=== PATIENT | female | born 1930 | race Caucasian/White ===

== ENCOUNTER 2017-08-01 08:31 | Inpatient (IN) | payer MEDICARE, MEDICAID ==
[2017-08-01 08:57] LABS: #Eosinphils 0.1 thou/uL (0.0-0.7); #Lymphocytes 1.2 thou/uL (1.20-3.40); #Monocytes 0.8 thou/uL (0.11-0.59); #Neutrophils 9.1 thou/uL (1.40-6.50); %Basophils 0.2 % (0.0-1.0); %Eosinophils 1.2 % (0.0-10.0); %Lymphocytes 10.2 % (21.0-51.0); %Monocytes 7.3 % (0.0-10.0); Hemoglobin 13.6 g/dL (12.0-16.0); Mean Corpuscular HGB CONC 32.8 g/dL (32.0-36.0); Mean Corpuscular Hemoglobin 31.1 pg (27.0-31.0); Mean Corpuscular Volume 94.7 fl (81.0-99.0); Mean Platelet Volume 7.6 fL (7.4-10.4); Platelet Count 235 thou/uL (130-400); Red Blood Cell (RBC) Count 4.39 mill/uL (4.20-5.40); White Blood Cell (WBC) Count 11.3 thou/uL (4.8-10.8)
[2017-08-01 09:03] LABS: INR-International Normal Ratio 1.1; Prothrombin Time 14.8 SEC (12.0-14.7)
[2017-08-01 09:07] LABS: PTT 137.2 SEC (22.9-36.1)
[2017-08-01] MEDS ORDERED: Iopamidol 370 76% 50 ML VIAL FS ONE (09:10)
[2017-08-01] MEDS ORDERED: Iopamidol 370 76% 100 ML VIAL ONE (09:10)
[2017-08-01] MEDS ORDERED: Morphine 4 MG/ML VIAL ONE (09:12)
--- NOTE | 2017-08-01 09:12 | RAD ---
CHEST 1 VIEW: Date: 08/01/17 COMPARISON: None. FINDINGS: Bilateral well-defined pulmonary nodules, likely granulomas. There is cement in the lower thoracic sp ine vertebra. Moderate size length pleural effusions. There is pulmonary venous congestion and mild interstitial pr ominence. No acute osseous abnormality. IMPRESSION: Findings suggesting congestive heart failure with cardiomegaly, moderate layering effusions, and mild to moderate pulmonary edema. POS: [facility]
[2017-08-01 09:17] LABS: ALT (SGPT) 14 U/L (8-55); AST (SGOT) 19 U/L (5-34); Alkaline Phosphatase 66 U/L (40-150); Anion Gap 12 mmol/L (10-20); BUN (Urea Nitrogen) 18 mg/dL (9.8-20.1); Bilirubin, Total 0.5 mg/dL (0.2-1.2); CK (CPK) 90 U/L (29-168); Calc. Creatinine Clearance 0 mL/min (70-130); Calcium 9.4 mg/dL (7.8-10.44); Carbon Dioxide 26 mmol/L (23-31); Chloride 103 mmol/L (98-107); Estimated GFR-MDRD 83; Globulin 2.9 g/dL (2.4-3.5); Glucose 125 mg/dL (83-110); Potassium 4.4 mmol/L (3.5-5.1); Protein, Total 6.9 g/dL (6.0-8.3); Sodium 137 mmol/L (136-145)
[2017-08-01 09:22] LABS: Troponin I 0.912 ng/mL (< 0.028)
[2017-08-01] MEDS ORDERED: Lidocaine 1% (PF) 30 ML VIAL ONE (09:35)
[2017-08-01] MEDS ORDERED: Midazolam HCl 2 mg/2 ml Vial ONE (10:01)
[2017-08-01] MEDS ORDERED: Fentanyl 100 MCG/2 ML VIAL ONE (10:02)
[2017-08-01] MEDS ORDERED: Nitroglycerin 100MG/250ML BOT 250 ML ONE (10:07)
[2017-08-01] MEDS ORDERED: Verapamil 5 MG/2 ML VIAL ONE (10:09)
--- NOTE | 2017-08-01 10:12 | HP ---
CHIEF COMPLAINT: Chest pain, shortness of breath. HISTORY OF PRESENT ILLNESS: Ms. De Dios is a very pleasant 87-year-old woman who has not been seen by Cardiology in the past. Her initial symptom was shortness of breath. This began on Tuesday. She st ates that this morning she had acute onset of worsening shortness of breath and chest tightness. No nausea or vomiting. She states her chest pressure was worse with exertion. No other ameliorating or exacerbating factors present. PAST MEDICAL HISTORY: Hyperlipidemia, hypertension. ALLERGIES: PENICILLIN. SOCIAL HISTORY: She is currently . She does have children. REVIEW OF SYSTEMS: Ten-point review of systems reviewed and were otherwise negative. PHYSICAL EXAMINATION: VITAL SIGNS: Blood pressure in the ER 130/90, pulse 80, respirations 20. GENERAL: Patient is a pleasant female who is in no acute distress. The patient appears her stated ag e. NEUROLOGIC: The patient is alert and oriented times 3 with no focal neurologic deficits. HEENT: Sclerae without icterus. Mouth has moist mucous membranes with normal pallor. NECK: No JVD. Carotid upstroke brisk. No bruits bilaterally. LUNGS: Clear to auscultation with unlabored respirations. BACK: No scoliosis or kyphosis. CARDIAC: Regular rate and rhythm with normal S1 and S2. No S3 or S4 noted. No significant rubs, mur murs, thrills, or gallops noted throughout the precordium. PMI is not displaced. There is no parast ernal heave. ABDOMEN: Soft, nontender, nondistended. No peritoneal signs present. No hepatosplenomegaly. No abn ormal striae. EXTREMITIES: 2+ femoral and 2+ dorsalis pedis pulses. No cyanosis, clubbing, or edema. SKIN: No gross abnormalities. PERTINENT LABS: Hemoglobin 13.6, creatinine 0.67, peak troponin 0.9. EKG normal sinus rhythm, ST w ave changes suggesting LVH noted in the precordial leads, cannot exclude acute ST-T wave changes note d in V4 through 5, although no reciprocal changes present. IMPRESSION: 1. Chest pressure. 2. Shortness of breath. 3. Abnormal EKG. 4. Elevated troponin. RECOMMENDATIONS: Symptoms certainly suggest unstable angina. This may also suggest acute new onset heart failure. At this point, given continued symptoms and elevated troponin and abnormal EKG, recom mend urgent coronary plus PCI. I discussed the procedure in full detail with Ms. De Dios. The risks of the procedure include but are not limited to the following: , stroke, SD, need for emergency surgery, loss of limb, bleeding, and infection, as well as a re action to the dye causing kidney failure and needing long-term dialysis. I also discussed the risks of PCI to include all of the above including coronary dissection and perforation in addition to acute stent thrombosis and restenosis. All questions about the procedure were answered. Given the above, the patient agreed to proceed with coronary angiography and possible PCI. I also discussed drug-coated and nondrug stent placement. There are no contraindications if needed. I also discussed her situation with Jefe, her son. Consent was also discussed with Jefe. Felix polo recommendation will be pending the above.
[2017-08-01] MEDS ORDERED: Adenosine 6 MG/2 ML VIAL ONE (10:21)
[2017-08-01] MEDS ORDERED: Heparin 10,000 UNITS/1 ML VIAL ONE (10:37)
[2017-08-01] MEDS ORDERED: Acetaminophen/Codeine 30-300mg Tablet PO PRN (10:44)
[2017-08-01] MEDS ORDERED: cloNIDine 0.1 MG TAB PO PRN (10:44)
[2017-08-01] MEDS ORDERED: Mag-Al 1200 mg/1200 mg/30 ML UDCUP PO PRN (10:44)
[2017-08-01] MEDS ORDERED: Milk Of Magnesia 30 ML UDCUP PO PRN (10:44)
[2017-08-01] MEDS ORDERED: Zolpidem Tartrate 5 MG TAB PO PRN (10:44)
[2017-08-01] MEDS ORDERED: traMADol HCl 50 MG TAB PO PRN (10:44)
[2017-08-01] MEDS ORDERED: Sodium Chloride 0.9% 1,000 ML IV SCH (10:45)
[2017-08-01 11:19] VITALS: BMI 25.0
--- NOTE | 2017-08-01 19:14 | CON ---
DATE OF CONSULTATION: 08/01/2017 SERVICE: Pulmonary Medicine. REASON FOR CONSULTATION: ICU patient. HISTORY OF PRESENT ILLNESS: The patient is an 87-year-old white female. For the last 3 to 4 days, she had chest pain whenever she would exert herself. She would sit down or lie down, the pain would go away, but whenever she got active again, she would have recurrence in chest discomfort. She was limping along in this manner for the last 3 days but this morning, she had a horrendous chest discomfort that did not go away with rest. As such, she presented to the Emergency Department. EKG was abnormal. Her troponin was elevated, so she underwent an urgent cardiac catheterization. By report, it is my understanding that she had complete occlusion of one of her vessels. She would end up getting this stented. As soon as this was opened up, she had resolution in her chest pain. Right now, she is chest pain free and denies any current shortness of breath, nausea, vomiting, fevers or chills. She had no infectious symptoms that predated her presentation. PAST MEDICAL HISTORY: 1. Hypertension. 2. Dyslipidemia. 3. History of myocardial infarction. 4. Coronary artery disease. PAST SURGICAL HISTORY: None. SOCIAL HISTORY: Negative for alcohol, tobacco or illicit drug use. She has no exposure to chemicals, dust asbestos or tuberculosis. FAMILY HISTORY: Noncontributory. ALLERGIES: PENICILLIN. REVIEW OF SYSTEMS: General, head, ears, eyes, nose, throat, cardiovascular, respiratory, GI, , musculoskeletal, neurologic and skin is negative except as mentioned in the HPI. PHYSICAL EXAMINATION: VITAL SIGNS: Afebrile, pulse 86, blood pressure 144/81, respirations 17, saturation 92% on 2 liters nasal cannula. GENERAL: The patient is awake and alert, no apparent distress. LUNGS: Decent air entry. Minimal crackles are present throughout bilateral lung felix. No prolonged expiratory phase or wheezing is appreciated. HEART: Normal rate, regular. ABDOMEN: Soft, nontender, nondistended. Bowel sounds are positive. MUSCULOSKELETAL: No cyanosis or clubbing. No pitting in the bilateral lower extremities. NEUROLOGIC: Grossly nonfocal. LABORATORY DATA: WBC 11.3, hemoglobin 13.6, platelets 235,000. INR is 1.1. Basic metabolic profile and liver function studies are otherwise unremarkable. Troponin is 0.91. IMAGING: Chest x-ray is consistent with volume overload with interstitial fullness, cephalization, and other pulmonary vascular congestion with probable bilateral pleural effusions. ASSESSMENT: 1. Acute hypoxic respiratory failure. 2. Non-ST elevation myocardial infarction. PLAN: The patient will remain in the ICU over the next 24 hours for close observation. IV fluids will be interrupted as soon as she is tolerating p.o. but right now, she is in a window where she is required to lay flat as her sheath was just removed. 70 minutes have been devoted to this patient in various activities. I personally reviewed all imaging studies and laboratory data noted within this document. For fifty percent of this time, I was interacting with the patient at the bedside or coordinating care with the care team. For the remainder of the time I was immediately available to the patient in the hospital unit. VIVIENNE
[2017-08-01] MEDS: Simethicone Chewable 80 MG TAB PO PRN (20:54)
[2017-08-01] MEDS: Carvedilol 3.125 MG TAB PO SCH (20:55)
[2017-08-01] MEDS: Atorvastatin Calcium 40 MG TAB PO SCH (20:55)
--- NOTE | 2017-08-01 21:36 | EKG ---
Test Reason : POST STENT Blood Pressure : / mmHG Vent. Rate : 079 BPM Atrial Rate : 079 BPM P-R Int : 162 ms QRS Dur : 090 ms QT Int : 374 ms P-R-T Axes : 039 -38 058 degrees QTc Int : 428 ms Normal sinus rhythm Left axis deviation Nonspecific T wave abnormality Abnormal ECG No previous ECGs available Confirmed by Eva CAMP ([id number]) on 08/01/2017 9:35:43 PM Referred By: JULIANA Confirmed By:Eva CAMP
[2017-08-02 05:11] LABS: #Lymphocytes 0.7 thou/uL (1.20-3.40); #Monocytes 0.6 thou/uL (0.11-0.59); #Neutrophils 8.4 thou/uL (1.40-6.50); %Basophils 0.1 % (0.0-1.0); %Eosinophils 0.3 % (0.0-10.0); %Lymphocytes 7.5 % (21.0-51.0); %Monocytes 5.8 % (0.0-10.0); %Neutrophils 86.4 % (42.0-75.0); Hemoglobin 13.2 g/dL (12.0-16.0); Mean Corpuscular HGB CONC 32.5 g/dL (32.0-36.0); Mean Corpuscular Hemoglobin 30.6 pg (27.0-31.0); Mean Corpuscular Volume 94.2 fl (81.0-99.0); Mean Platelet Volume 7.8 fL (7.4-10.4); Platelet Count 246 thou/uL (130-400); RBC Distribution Width 13.1 % (11.5-14.5); White Blood Cell (WBC) Count 9.7 thou/uL (4.8-10.8)
[2017-08-02 05:20] LABS: ALT (SGPT) 13 U/L (8-55); AST (SGOT) 17 U/L (5-34); Albumin 3.7 g/dL (3.4-4.8); Alkaline Phosphatase 63 U/L (40-150); Anion Gap 14 mmol/L (10-20); BUN (Urea Nitrogen) 15 mg/dL (9.8-20.1); Bilirubin, Total 0.6 mg/dL (0.2-1.2); Calc. Creatinine Clearance 61 mL/min (70-130); Calcium 8.9 mg/dL (7.8-10.44); Carbon Dioxide 25 mmol/L (23-31); Chloride 103 mmol/L (98-107); Estimated GFR-MDRD 86; Globulin 2.9 g/dL (2.4-3.5); Glucose 175 mg/dL (83-110); Potassium 3.7 mmol/L (3.5-5.1); Protein, Total 6.6 g/dL (6.0-8.3); Sodium 138 mmol/L (136-145)
[2017-08-02] MEDS ORDERED: Heparin 10,000 UNITS/1 ML VIAL ONE (05:50)
[2017-08-02 08:35] LABS: CKMB 5.6 ng/mL (0-6.6)
--- NOTE | 2017-08-02 08:35 | PRG ---
DATE OF SERVICE: 08/02/2017 SUBJECTIVE: Ms. De Dios is complaining of left-sided abdominal discomfort. She has not had a bowel m ovement. She has had diverticulitis in the remote past. No current episode of chest pain or pressur e. PHYSICAL EXAMINATION: VITAL SIGNS: Blood pressure 150/76, pulse 91, respirations 20. LUNGS: Clear to auscultation. CARDIAC: Regular rate and rhythm. ABDOMEN: Soft, mild tenderness to deep palpation. EXTREMITIES: No edema. PERTINENT LABS: Hemoglobin 13.2. Initial troponin 0.9. IMPRESSION: 1. Non-Q myocardial infarction. 2. Coronary artery disease. 3. Status post stent placement. 4. Abdominal pain. RECOMMENDATIONS: We will try and allow Ms. De Dios to have a bowel movement. If she continues to hav e symptoms, may consult with GI. We will give her milk of magnesia. From my standpoint, she appears stable to transfer to the floor.
[2017-08-02 08:39] LABS: Troponin I 0.996 ng/mL (< 0.028)
--- NOTE | 2017-08-02 09:05 | PRG ---
DATE OF SERVICE: 08/02/2017 SERVICE: Pulmonary Medicine. INTERVAL HISTORY: The patient is doing absolutely fantastic this morning. She had complaints of abd ominal discomfort yesterday. She ended up getting some simethicone and this seemed to improve some o f her belly issues. She denies any chest discomfort or shortness of breath. She is yet to get out o f bed and we will work on mobilizing her today. She indicates that she falls frequently without sign ificant assistance and so we will make certain that we provide her with that support. PHYSICAL EXAMINATION: VITAL SIGNS: Afebrile, pulse 91, blood pressure 150/76, respirations 16, saturation 95% on room air. GENERAL: The patient is awake, alert, no apparent distress. LUNGS: Decent air entry. There is no prolonged expiratory phase, wheezing, rhonchi, or crackles pre sent. HEART: Normal rate and regular. ABDOMEN: Soft, nontender, and nondistended. Bowel sounds are positive. MUSCULOSKELETAL: No cyanosis or clubbing. No pitting in the bilateral lower extremities. NEUROLOGIC: Grossly nonfocal. LABORATORY DATA: WBC 9.7, hemoglobin 13.2, platelets 246,000. INR 1.1. Troponin is stable at 0.99. Basic metabolic profile and liver function studies are otherwise unremarkable. ASSESSMENT: 1. Acute hypoxic respiratory failure, resolved. 2. Non-ST elevation myocardial infarction. 3. Abdominal pain. 4. Debility. PLAN: I will initiate some anti-constipation medications on the patient. We will repeat a CBC tomor row morning to make certain white blood cell count and continue to trend up. The patient does have a history of diverticulosis. Currently, her belly is fairly soft and there is no significant tenderne ss or rebound. As such, I do think she has an acute flare. We will keep a close eye on her belly; h owever, as time goes on we will work on mobilizing the patient as much as tolerated. Initiate some a nti-constipation medications. Pulmonary or Critical Care will continue to follow while she remains i n this location, but from my perspective, she is likely stable for transition to the telemetry unit.
[2017-08-02] MEDS: Carvedilol 3.125 MG TAB PO SCH ×2 (09:18→20:49)
[2017-08-02] MEDS: Clopidogrel Bisulfate 75 MG TAB PO SCH (09:18)
[2017-08-02] MEDS: Polyethylene Glycol 3350 17 GM Packet PO SCH (09:18)
[2017-08-02] MEDS: Simethicone Chewable 80 MG TAB PO PRN (09:18)
[2017-08-02] MEDS: ALPRAZolam 0.5 MG TAB PO PRN ×2 (12:12→20:50)
[2017-08-02] MEDS ORDERED: Digoxin 0.5 MG/2 ML AMP SLOW IVP SCH (17:45)
[2017-08-02] MEDS: Esmolol 2,500 MG/250 ML 250 ML IVPB SCH (18:17)
[2017-08-02] MEDS: Atorvastatin Calcium 40 MG TAB PO SCH (20:49)
[2017-08-03] MEDS: Esmolol 2,500 MG/250 ML 250 ML IVPB SCH (05:14)
[2017-08-03 05:29] LABS: #Lymphocytes 1.5 thou/uL (1.20-3.40); #Monocytes 1.4 thou/uL (0.11-0.59); %Basophils 0.2 % (0.0-1.0); %Eosinophils 0.2 % (0.0-10.0); %Lymphocytes 12.8 % (21.0-51.0); %Neutrophils 74.8 % (42.0-75.0); Hemoglobin 12.2 g/dL (12.0-16.0); Mean Corpuscular HGB CONC 31.8 g/dL (32.0-36.0); Mean Corpuscular Hemoglobin 30.7 pg (27.0-31.0); Mean Corpuscular Volume 96.6 fl (81.0-99.0); Mean Platelet Volume 8.3 fL (7.4-10.4); Platelet Count 228 thou/uL (130-400); Red Blood Cell (RBC) Count 3.98 mill/uL (4.20-5.40)
[2017-08-03] MEDS: Clopidogrel Bisulfate 75 MG TAB PO SCH (09:11)
[2017-08-03] MEDS: ALPRAZolam 0.5 MG TAB PO PRN ×2 (09:11→21:39)
[2017-08-03] MEDS: Carvedilol 3.125 MG TAB PO SCH ×2 (09:11→21:39)
[2017-08-03] MEDS: Polyethylene Glycol 3350 17 GM Packet PO SCH (09:11)
[2017-08-03] MEDS ORDERED: Furosemide 40 MG/4 ML VIAL IVP SCH (10:00)
--- NOTE | 2017-08-03 17:37 | PRG ---
DATE OF SERVICE: 08/03/2017 SERVICE: Pulmonary Medicine. INTERVAL HISTORY: The patient is doing fine from a respiratory standpoint. She denies any shortness of breath. She got up into a chair today. She needs significant help in order to accomplish this. Otherwise, there has been no interval change to her condition. PHYSICAL EXAMINATION: VITAL SIGNS: Afebrile, pulse 77, blood pressure 135/63, respirations 17, saturation 95% on 1 liter n marlena cannula. GENERAL: The patient is awake and alert, in no apparent distress. LUNGS: Excellent air entry. Dependent crackles are minimal. No prolonged expiratory phase, wheezin g or rhonchi are present. HEART: Normal rate. Irregular. ABDOMEN: Soft, nontender, nondistended. Bowel sounds are positive. MUSCULOSKELETAL: No cyanosis or clubbing. No pitting in the bilateral lower extremities. NEUROLOGIC: Grossly nonfocal. LABORATORY DATA: WBC 12.0, hemoglobin 12.2, platelets 228,000. Neutrophil count is dropping and the lymphocyte count is responding. INR 1.1. IMAGING: Echocardiogram demonstrates a 30% to 35% ejection fraction and hypokinetic motion of the an terior apex and wall of the left ventricle. Normal right ventricular function is present. ASSESSMENT: 1. Acute hypoxic respiratory failure, resolving. 2. Non-ST elevation myocardial infarction. 3. Acute systolic heart failure. PLAN: Pulmonary or Critical Care will continue to follow while the patient remains in this location. I will drop her oxygen to room air. We will see if she tolerates this. If she does, she will have no further requirements for Inpatient Pulmonary or Critical Care opinion.
[2017-08-03] MEDS: Atorvastatin Calcium 40 MG TAB PO SCH (21:39)
[2017-08-04] MEDS: ALPRAZolam 0.5 MG TAB PO PRN ×2 (08:54→21:32)
[2017-08-04] MEDS: Carvedilol 3.125 MG TAB PO SCH ×2 (08:54→21:30)
[2017-08-04] MEDS: Clopidogrel Bisulfate 75 MG TAB PO SCH (08:54)
[2017-08-04] MEDS: Polyethylene Glycol 3350 17 GM Packet PO SCH (08:55)
--- NOTE | 2017-08-04 13:31 | PRG ---
DATE OF SERVICE: 08/04/2017 SERVICE: Pulmonary Medicine. INTERVAL HISTORY: The patient is doing fantastic from a cardiovascular and respiratory standpoint. She is breathing comfortably. She remains on room air. Otherwise, there were no interval events. S he is quite weak and is going to be considered for rehabilitation facility. PHYSICAL EXAMINATION: VITAL SIGNS: Afebrile, pulse 79, blood pressure 119/58, respirations 17, saturation 92% on room air. GENERAL: The patient is awake, alert, no apparent distress. LUNGS: Excellent air entry with no prolonged expiratory phase, wheezing, rhonchi or crackles. HEART: Normal rate, regular. ABDOMEN: Soft, nontender, nondistended. Bowel sounds are positive. MUSCULOSKELETAL: No cyanosis or clubbing. No pitting in the bilateral lower extremities. NEUROLOGIC: Grossly nonfocal. ASSESSMENT: 1. Acute hypoxic respiratory failure, resolved. 2. Non-ST elevation myocardial infarction. 3. Acute systolic heart failure. PLAN: The patient is doing really well from a respiratory standpoint. She is quite debilitated and is going to work with physical therapy. I do agree that she would benefit from a stay in rehabilitat ion or shelter facility to strengthen up. At this point, she has no ongoing requirements for Pulmonary or Critical Care opinion. As such, I will sign off. Please call with additional question s or concerns moving forward.
--- NOTE | 2017-08-04 15:41 | PRG ---
DATE OF SERVICE: 08/04/2017 SUBJECTIVE: She is doing well, no current complaints. She is seen ambulating. She has been accepte d for rehab but bed is not available until tomorrow. OBJECTIVE: VITAL SIGNS: Blood pressure 137/70, pulse 85, respirations 20. LUNGS: Clear to auscultation. CARDIAC: Regular rate and rhythm. ABDOMEN: Soft, nontender, nondistended. EXTREMITIES: No edema. IMPRESSION: 1. Non-Q myocardial infarction. 2. Deconditioning. RECOMMENDATIONS: The patient has been cleared for rehabilitation when bed available tomorrow. Disch arge orders have been placed. From my standpoint, we would be okay to discharge to rehab tomorrow. LifeVest had also been fitted. She is currently on beta benjamin therapy, ARB, aspirin and Plavix in addition to statin therapy. I did speak with her daughter today, Kiara, and kept abreast of the si tuation.
[2017-08-04] MEDS: Esmolol 2,500 MG/250 ML 250 ML IVPB SCH (18:38)
[2017-08-04] MEDS: Atorvastatin Calcium 40 MG TAB PO SCH (21:30)
[2017-08-05] MEDS: Esmolol 2,500 MG/250 ML 250 ML IVPB SCH (05:18)
[2017-08-05] MEDS: Losartan 25 MG TAB PO SCH (09:41)
[2017-08-05] MEDS: Carvedilol 3.125 MG TAB PO SCH (09:41)
[2017-08-05] MEDS: Polyethylene Glycol 3350 17 GM Packet PO SCH (09:41)
[2017-08-05] MEDS: Clopidogrel Bisulfate 75 MG TAB PO SCH (09:41)
--- NOTE | 2017-08-05 10:42 | PDOC.CTH ---
Cardiology Progress Note - Subjective Patient without complaint. Went into AF with RVR yesterday early evening. Symptomatic with palpitations. Placed on esmolol drip and converted back to NSR. Feels fine now. - Objective Vital Signs Temp Pulse Resp BP BP Pulse Ox 08/05/17 08:00 98.1 F 78 18 94 L 08/05/17 07:15 98.1 F 78 18 135/65 94 L 08/05/17 04:00 97.9 F 82 18 134/76 94 L Weight 160 lb 12.8 oz 08/04/17 08/05/17 08/06/17 06:59 06:59 06:59 Intake Total 1540 Output Total 2450 Balance -910 - Physical Examination General/Neuro: alert & oriented x3, NAD Neck: no JVD present Lungs: CTA, unlabored respirations Heart: RRR, other: (S1S2) Abdomen: NT/ND Extremities: other: (no edema) - Telemetry Telemetry Rhythm: NSR 60s-70s - Labs Result Diagrams: 08/03/17 04:22 08/02/17 04:33 Troponin/CKMB CK-MB (CK-2) 5.6 ng/mL (0-6.6) 08/02/17 08:04 Troponin I 0.996 ng/mL (< 0.028) H* 08/02/17 08:04 - Assessment/Plan 1. s/p NSTEMI - on ARB, Coreg and statin. 2. s/p PTCA - continue Plavix and ASA 3. 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 Euvolemic. LifeVest in place. 4. AFib with RVR - resolved on esmolol. Increase Coreg. May need Amio. [id number]- VASc 5. Discussed with patient and bleeding risk, especially in combination with ASA and Plavix. She chooses NOAC. Will start Eliquis 5mg BID. May benefit from Amio for a month post-discharge. 5. HTN
[2017-08-05] MEDS ORDERED: Carvedilol 3.125 MG TAB PO SCH (10:45)
[2017-08-05] MEDS: Atorvastatin Calcium 40 MG TAB PO SCH (20:45)
[2017-08-05] MEDS: ALPRAZolam 0.5 MG TAB PO PRN (20:45)
[2017-08-05] MEDS: Apixaban 5 MG TAB PO SCH (20:46)
[2017-08-05] MEDS: Carvedilol 6.25 MG TAB PO SCH (20:46)
[2017-08-06 05:35] LABS: Hemoglobin 13.5 g/dL (12.0-16.0)
[2017-08-06 05:36] LABS: Platelet Count 247 thou/uL (130-400)
[2017-08-06 05:58] LABS: Calc. Creatinine Clearance 75 mL/min (70-130); Estimated GFR-MDRD Greater than 90
[2017-08-06] MEDS: Carvedilol 6.25 MG TAB PO SCH ×2 (08:55→20:11)
[2017-08-06] MEDS: ALPRAZolam 0.5 MG TAB PO PRN ×2 (08:56→20:11)
[2017-08-06] MEDS: Clopidogrel Bisulfate 75 MG TAB PO SCH (08:56)
[2017-08-06] MEDS: Apixaban 5 MG TAB PO SCH ×2 (08:56→20:12)
[2017-08-06] MEDS: Losartan 25 MG TAB PO SCH (08:56)
[2017-08-06] MEDS: Polyethylene Glycol 3350 17 GM Packet PO SCH (08:59)
[2017-08-06] MEDS ORDERED: Amiodarone 200 MG TAB PO SCH (10:45)
[2017-08-06 11:21] LABS: #Eosinphils 0.1 thou/uL (0.0-0.7); #Lymphocytes 1.4 thou/uL (1.20-3.40); #Neutrophils 10.4 thou/uL (1.40-6.50); %Basophils 0.1 % (0.0-1.0); %Eosinophils 0.5 % (0.0-10.0); %Lymphocytes 10.8 % (21.0-51.0); %Monocytes 7.8 % (0.0-10.0); %Neutrophils 80.8 % (42.0-75.0); Mean Corpuscular HGB CONC 32.5 g/dL (32.0-36.0); Mean Corpuscular Hemoglobin 30.4 pg (27.0-31.0); Mean Corpuscular Volume 93.6 fl (81.0-99.0); Mean Platelet Volume 7.3 fL (7.4-10.4); Platelet Count 239 thou/uL (130-400); RBC Distribution Width 13.2 % (11.5-14.5); Red Blood Cell (RBC) Count 4.27 mill/uL (4.20-5.40); White Blood Cell (WBC) Count 12.8 thou/uL (4.8-10.8)
[2017-08-06 11:37] LABS: ALT (SGPT) 23 U/L (8-55); AST (SGOT) 20 U/L (5-34); Albumin 3.1 g/dL (3.4-4.8); Alkaline Phosphatase 61 U/L (40-150); Anion Gap 8 mmol/L (10-20); BUN (Urea Nitrogen) 15 mg/dL (9.8-20.1); Bilirubin, Total 0.5 mg/dL (0.2-1.2); Calc. Creatinine Clearance 76 mL/min (70-130); Calcium 8.1 mg/dL (7.8-10.44); Carbon Dioxide 29 mmol/L (23-31); Chloride 101 mmol/L (98-107); Estimated GFR-MDRD Greater than 90; Globulin 2.2 g/dL (2.4-3.5); Glucose 133 mg/dL (83-110); Magnesium 1.7 mg/dL (1.6-2.6); Potassium 3.2 mmol/L (3.5-5.1); Protein, Total 5.3 g/dL (6.0-8.3); Sodium 135 mmol/L (136-145)
[2017-08-06] MEDS: Amiodarone 200 MG TAB PO SCH (20:11)
[2017-08-06] MEDS: Atorvastatin Calcium 40 MG TAB PO SCH (20:11)
--- NOTE | 2017-08-06 20:54 | PDOC.EVN ---
Event Note - Event Note Event Note: Consult note dictated
[2017-08-07 05:25] LABS: #Eosinphils 0.1 thou/uL (0.0-0.7); #Lymphocytes 1.8 thou/uL (1.20-3.40); #Monocytes 0.9 thou/uL (0.11-0.59); #Neutrophils 9.6 thou/uL (1.40-6.50); %Basophils 0.2 % (0.0-1.0); %Eosinophils 0.9 % (0.0-10.0); %Lymphocytes 14.4 % (21.0-51.0); %Monocytes 7.2 % (0.0-10.0); %Neutrophils 77.3 % (42.0-75.0); Hemoglobin 12.8 g/dL (12.0-16.0); Mean Corpuscular HGB CONC 33.1 g/dL (32.0-36.0); Mean Corpuscular Hemoglobin 31.9 pg (27.0-31.0); Mean Corpuscular Volume 96.3 fl (81.0-99.0); Mean Platelet Volume 7.7 fL (7.4-10.4); Platelet Count 250 thou/uL (130-400); RBC Distribution Width 13.3 % (11.5-14.5); Red Blood Cell (RBC) Count 4.01 mill/uL (4.20-5.40); White Blood Cell (WBC) Count 12.4 thou/uL (4.8-10.8)
[2017-08-07 05:31] LABS: ALT (SGPT) 24 U/L (8-55); AST (SGOT) 19 U/L (5-34); Albumin 3.1 g/dL (3.4-4.8); Alkaline Phosphatase 61 U/L (40-150); Anion Gap 10 mmol/L (10-20); BUN (Urea Nitrogen) 11 mg/dL (9.8-20.1); Bilirubin, Total 0.6 mg/dL (0.2-1.2); Calc. Creatinine Clearance 70 mL/min (70-130); Calcium 8.4 mg/dL (7.8-10.44); Carbon Dioxide 29 mmol/L (23-31); Chloride 102 mmol/L (98-107); Estimated GFR-MDRD Greater than 90; Globulin 2.2 g/dL (2.4-3.5); Glucose 138 mg/dL (83-110); Magnesium 1.8 mg/dL (1.6-2.6); Potassium 3.1 mmol/L (3.5-5.1); Protein, Total 5.3 g/dL (6.0-8.3); Sodium 138 mmol/L (136-145)
[2017-08-07] MEDS: Amiodarone 200 MG TAB PO SCH ×2 (08:30→20:24)
[2017-08-07] MEDS: Losartan 25 MG TAB PO SCH (08:30)
[2017-08-07] MEDS: ALPRAZolam 0.5 MG TAB PO PRN ×2 (08:30→20:24)
[2017-08-07] MEDS: Clopidogrel Bisulfate 75 MG TAB PO SCH (08:30)
[2017-08-07] MEDS: Apixaban 5 MG TAB PO SCH ×2 (08:30→20:24)
[2017-08-07] MEDS: Carvedilol 6.25 MG TAB PO SCH ×2 (08:31→20:24)
[2017-08-07] MEDS: Potassium Chloride 20 MEQ TAB PO SCH ×3 (09:09→17:31)
--- NOTE | 2017-08-07 12:21 | PDOC.PN ---
- Subjective Encounter Start Date: 08/07/17 Encounter Start Time: 10:15 pt had 3 BM for the day when i saw her yesterday afternoon, only one more overnight. none today yet. Denies Abd pain, no N/V, no CP, no SOB 10 point ROS performed and neg for all systems except as per HPI - Objective MAR Reviewed: Yes Vital Signs & Weight: Vital Signs (12 hours) Temp Pulse Resp BP BP BP Pulse Ox 08/07/17 08:31 138/62 08/07/17 07:20 97.2 F L 76 18 93 L 08/07/17 07:15 97.2 F L 76 18 138/62 93 L 08/07/17 04:00 97.8 F 77 18 140/64 95 08/07/17 02:31 95 Weight Weight 158 lb Most Recent Monitor Data Heart Rate from ECG 96 NIBP 164/118 NIBP BP-Mean 132 Respiration from ECG 16 SpO2 92 I&O: 08/06/17 08/07/17 08/08/17 06:59 06:59 06:59 Intake Total 300 460 Balance 300 460 Result Diagrams: 08/07/17 04:31 08/07/17 04:31 Radiology Reviewed by me: Yes EKG Reviewed by me: Yes Phys Exam - Physical Examination Constitutional: NAD HEENT: PERRLA, moist MMs, sclera anicteric, oral pharynx no lesions Neck: no nodes, no JVD, supple, full ROM Respiratory: no wheezing, no rales, no rhonchi, clear to auscultation bilateral Cardiovascular: RRR, no significant murmur, no rub Gastrointestinal: soft, non-tender, no distention, positive bowel sounds Musculoskeletal: no edema, pulses present Neurological: non-focal, normal sensation, moves all 4 limbs Lymphatic: no nodes Psychiatric: normal affect, A&O x 3 Skin: no rash, normal turgor, cap refill <2 seconds Dx/Plan (1) Diarrhea Code(s): R19.7 - DIARRHEA, UNSPECIFIED Status: Acute Qualifiers: Diarrhea type: presumed infectious Qualified Code(s): R19.7 - Diarrhea, unspecified Comment: WBC present,m neg for salmonella or campy, neg for blood, CDiff negative. no further rx. got miralax a few days ag o and has refused since, would obviously not continue (2) Unstable angina Status: Resolved Comment: s/p PTCA and PCI by Dr Barry (3) CAD (coronary artery disease), [place] coronary artery Code(s): I25.10 - ATHSCL HEART DISEASE OF [place] CORONARY ARTERY W/O ANG PCTRS Status: Acute Qualifiers: [place] vs. transplanted heart: [place] heart Associated angina: with unstable angina Qualified Code(s): I25.110 - Atherosclerotic heart disease of [place] coronary artery with unstable angina pectoris (4) Paroxysmal A-fib Code(s): I48.0 - PAROXYSMAL ATRIAL FIBRILLATION Status: Chronic (5) HTN (hypertension) Code(s): I10 - ESSENTIAL (PRIMARY) HYPERTENSION Status: Chronic Qualifiers: Hypertension type: essential hypertension Qualified Code(s): I10 - Essential (primary) hypertension - Plan cont current plan of care, PT/OT, out of bed/ambulate * .
[2017-08-07] MEDS: Atorvastatin Calcium 40 MG TAB PO SCH (20:25)
[2017-08-08 05:02] LABS: Hemoglobin 12.3 g/dL (12.0-16.0); Platelet Count 270 thou/uL (130-400)
[2017-08-08 05:29] LABS: Calc. Creatinine Clearance 73 mL/min (70-130); Estimated GFR-MDRD Greater than 90
--- NOTE | 2017-08-08 08:53 | CON ---
DATE OF CONSULTATION: 08/06/2017 TIME OF SERVICE: 1530 hours PRIMARY CARE PHYSICIAN: Santiago Cowart M.D. REQUESTING PHYSICIAN: Mark Ramon M.D. with Cardiology. REASON FOR CONSULTATION: Diarrhea. HISTORY OF PRESENT ILLNESS: Ms. De Dios is an 87-year-old [place] female with a history of h ypertension, hyperlipidemia, coronary artery disease with a past KS and no history of tobacco abuse w barb presents to the emergency department initially on 08/01/2017 for evaluation of chest pain. 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 Per Dr. Barry note, she describes the a cute onset of worsening of shortness of breath and chest tightness without nausea and vomiting and wo rse with exertion. She did consent at the time of admission for a possible PTCA with and without PCI . After admission, Pulmonary was consulted. This was done as she was placed initially in the ICU. She was post-PTCA for unstable angina, possible ST elevation KS and was watched in the ICU overnight. B y 08/02/2017, she was improved. She was complaining of the left-sided abdominal discomfort and did h ave a history of diverticulitis. She was started on MiraLax by Dr. Barry. She received 1 dose t hat day. Echocardiogram was done that showed EF of 30%-35%, there was apex inferior septal wall hypo kinesis, moderate MR, moderate AI, moderate TR and moderately elevated pulmonary pressure. The patient did have belly pain and on 08/05/2017 had multiple bowel movements a day seemed to be get ting worse. She has been refusing her MiraLax during that time and on 08/05/2017, was taken over by Dr. Ramon. Patient had multiple bowel movements, numbering 3 between 7:00 a.m. and noon. We were subsequently consulted for diarrhea. On my evaluation, she had no fevers or chills. She denied any bleeding. She did admit to taking her MiraLax a day or two prior to that, but had not had any since then. She has no other current complaints. Character of the stool was noted to be loosely formed and not watery. Per the nurses, did not smell infectious such as C. diff. PAST MEDICAL HISTORY: 1. Coronary artery disease. 2. Hypertension. 3. Ischemic cardiomyopathy. 4. Chronic systolic CHF. 5. Diverticulosis. 6. Hyperlipidemia. HOME MEDICATIONS: 1. Xanax 0.5 mg p.o. at bedtime and 0.5 mg p.o. q.i.d. scheduled. 2. Coreg 3.125 mg p.o. b.i.d., a new prescription. 3. Celexa 30 mg p.o. at bedtime. 4. Plavix 75 mg daily, a new prescription. 5. Fentanyl 1 patch 12 mcg transdermal, change every 3 days. 6. Levothyroxine 100 mcg daily. 7. Lisinopril 10 mg p.o. q.a.m. 8. Multivitamin b.i.d. 9. Metamucil 425 grams p.o. b.i.d. ALLERGIES: PENICILLINS. FAMILY HISTORY: Negative for premature coronary disease. No history of clotting or bleeding, no imm une dysfunction. SOCIAL HISTORY: She denies any history of alcohol, tobacco or drug use. REVIEW OF SYSTEMS: A 10-point review of systems was performed and is negative for all systems except as per HPI. PHYSICAL EXAMINATION: VITAL SIGNS: Temperature last recorded was 97.9, pulse 80, blood pressure 134/62, respiratory rate 1 8, satting 95% on room air. GENERAL: She is awake. She is alert and oriented x2. She is an elderly age-appropriate appearing 6 9-year-old white female, appears to be in no acute distress. HEENT: Normocephalic, atraumatic. Pupils equal, reactive bilaterally. Mucous membranes are moist. No visible lesions. No thrush. NECK: Supple, without lymphadenopathy, JVD, or thyromegaly. She has normal carotid upstrokes. Ther e are no bruits. LUNGS: Clear to auscultation bilaterally. She has no wheezes, no rales, no rhonchi. She has good a ir movement. Symmetrical chest excursion. There is no prolonged expiratory phase. CARDIOVASCULAR: She has normal cardiac and regular. She has normal S1 and S2. I do hear an S4, but no S3. She has a systolic ejection murmur heard over the precordium. She has a diastolic murmur be st heard at the apex. She also has a holosystolic murmur best heard at the apex. ABDOMEN: Soft, is distended and slightly tympanitic. She has hyperactive bowel sounds present in lo wer quadrants. There is no tenderness to palpation. No rebound, rigidity or guarding. EXTREMITIES: Show no cyanosis or clubbing with no edema. She has 1+ dorsalis pedis and posterior ti bial pulses bilaterally. SKIN: Warm, moist perfused. No rashes or lesions. NEUROLOGIC: Cranial nerves II-XII are grossly intact. She has no focal neurologic deficits. She shanks s normal speech pattern, 5/5 strength. MUSCULOSKELETAL: Normal to inspection. All joints have good range of motion. No palpable effusion, no inflammation. LABORATORY EVALUATION: Today show white count 12.8 from 12.0 yesterday and 9.7 just after admission, hemoglobin 13, hematocrit of 40.0, platelet count is 239,000 with a pretty normal differential 80% g ranulocytes. Chemistry profile this morning of consultation showed a sodium 135, potassium 3.2, chlo ride 101, bicarb 29, BUN 15, creatinine 0.57. Glucose 133. Liver function, bilirubin within normal limits. Albumin is low at 3.1, globulin low at 2.2. Troponin I was 0.912 on initial presentation, it was 0.996 the following morning post-intervention. ASSESSMENT AND PLAN: 1. Diarrhea. She has 3 episodes today, three or four episodes yesterday. Per the chart showed a to karla of 3 between 0700 on 08/05/2017 and 0630 on 08/06/2017. She already had a Clostridium difficile ordered that was negative. We will get fecal leukocytes, fecal blood and stool culture for Jonnyy, Lyn igella and E. coli . We will follow up with the results. At this time, she has not had any bow el movement in the last several hours. We will watch overnight and then make another intervention. 2. Atherosclerotic cardiovascular disease, status post possible myocardial infarction and percutaneo us transluminal coronary angioplasty per Cardiology. 3. Hypertension per Cardiology. 4. Hyperlipidemia, on statin therapy. Thank you very much for this consult. We will follow along with you.
[2017-08-08] MEDS: Amiodarone 200 MG TAB PO SCH ×2 (09:42→20:16)
[2017-08-08] MEDS: Clopidogrel Bisulfate 75 MG TAB PO SCH (09:42)
[2017-08-08] MEDS: Carvedilol 6.25 MG TAB PO SCH ×2 (09:42→20:16)
[2017-08-08] MEDS: Losartan 25 MG TAB PO SCH (09:42)
[2017-08-08] MEDS: Apixaban 5 MG TAB PO SCH ×2 (09:42→20:15)
[2017-08-08] MEDS: ALPRAZolam 0.5 MG TAB PO PRN ×2 (09:44→20:16)
--- NOTE | 2017-08-08 10:06 | PDOC.PN ---
- Subjective Encounter Start Date: 08/08/17 Encounter Start Time: 11:10 Subjective: Patient without further abdominal pain or diarrhea. She does still feel -: alot of epigastric pressure when she tried to eat that makes her SOB. -: A bit better this AM. - Objective MAR Reviewed: Yes Vital Signs & Weight: Vital Signs (12 hours) Temp Pulse Resp BP Pulse Ox 08/08/17 07:30 97.8 F 80 16 142/68 H 93 L 08/08/17 05:09 96 08/08/17 04:00 97.7 F 78 17 119/58 L 95 Weight Weight 156 lb 3.2 oz Most Recent Monitor Data Heart Rate from ECG 96 NIBP 164/118 NIBP BP-Mean 132 Respiration from ECG 16 SpO2 92 I&O: 08/07/17 08/08/17 08/09/17 06:59 06:59 06:59 Intake Total 460 270 Balance 460 270 Result Diagrams: 08/08/17 04:10 08/08/17 04:10 Phys Exam - Physical Examination Constitutional: NAD HEENT: moist MMs Respiratory: no wheezing, no rales, no rhonchi, clear to auscultation bilateral Cardiovascular: RRR, no significant murmur Gastrointestinal: soft, non-tender, no distention, positive bowel sounds Musculoskeletal: no edema Neurological: non-focal, moves all 4 limbs Psychiatric: normal affect, A&O x 3 Dx/Plan (1) Diarrhea Code(s): R19.7 - DIARRHEA, UNSPECIFIED Status: Resolved Qualifiers: Diarrhea type: presumed infectious Qualified Code(s): R19.7 - Diarrhea, unspecified Comment: WBC present, neg for salmonella or campy, neg for blood, CDiff negative. no further rx. got miralax a few days ago and has refused since, would obviously not continue. Suspect viral GE, now still with some dyspepsia, improving. (2) CAD (coronary artery disease), [place] coronary artery Code(s): I25.10 - ATHSCL HEART DISEASE OF [place] CORONARY ARTERY W/O ANG PCTRS Status: Acute Qualifiers: [place] vs. transplanted heart: [place] heart Associated angina: with unstable angina Qualified Code(s): I25.110 - Atherosclerotic heart disease of [place] coronary artery with unstable angina pectoris (3) NSTEMI (non-ST elevated myocardial infarction) Code(s): I21.4 - NON-ST ELEVATION (NSTEMI) MYOCARDIAL INFARCTION Status: Acute Comment: s/p stent (4) Paroxysmal A-fib Code(s): I48.0 - PAROXYSMAL ATRIAL FIBRILLATION Status: Chronic Comment: run last week resolved with Esmolol, cardiology managing and may treat with Amiodarone for one month (5) Hypokalemia Code(s): E87.6 - HYPOKALEMIA Status: Acute Comment: replaced - Plan cont current plan of care will check O2 sat while eating to confirm no hypoxia from aspiration -: If ok, cleared for d/c from our standpoint. * . - Discharge Day Encounter end time: 11:25
[2017-08-08 20:03] VITALS: BP 144/64; TEMP 98.1
[2017-08-08] MEDS ORDERED: Atorvastatin Calcium 20 MG TAB PO SCH (21:00)
--- NOTE | 2017-08-09 03:13 | DIS ---
PRIMARY CARE PHYSICIAN: Dr. Santaigo Cowart. REASON FOR ADMISSION: Non-ST elevation and acute ID. ADMITTING PHYSICIAN: Dr. Barry. DISCHARGE DIAGNOSES: 1. Non-ST elevation acute myocardial infarction, status post stent placement. 2. Coronary artery disease. 3. Paroxysmal atrial fibrillation. 4. Viral gastroenteritis. HOSPITAL COURSE: This is an 87-year-old female who came in and was admitted to the hospital by Dr. Barry for chest pain and diagnosed with a non-ST elevation acute ID. She had a PCI with stent placement. The patient's hospital course was complicated by some abdominal cramping followed by diarrhea and then abdominal bloating with when eating. The [facility] hospitalist was consulted to manage these. Patient was ruled out for any bacterial infectious etiology or C. diff and thought to be due to viral gastritis and is improving. The patient did have a paroxysmal atrial fibrillation, it was resolved with esmolol in the hospital also on amiodarone and blood thinners. On the day of discharge, the patient was determined to be stable by Cardiology to discharge to rehab. DISCHARGE MANAGEMENT: Discharged to rehabilitation. ACTIVITIES: As tolerated. DIET: Healthy heart diet. Physical and occupational therapy. Follow up with Cardiology as indicated. DISCHARGE MEDICATIONS: As per Cardiology's recommendations. MTDD
--- NOTE | 2017-08-13 22:58 | EKG ---
Test Reason : CP Blood Pressure : / mmHG Vent. Rate : 090 BPM Atrial Rate : 090 BPM P-R Int : 152 ms QRS Dur : 084 ms QT Int : 354 ms P-R-T Axes : 037 -32 067 degrees QTc Int : 433 ms Normal sinus rhythm Left axis deviation Possible Anterior infarct , age undetermined Abnormal ECG Confirmed by OMI SHAH, JOLIE ([id number]), medical transcription editor DON OWEN ([id number]) on 08/13/2017 10:57:57 PM Referred By: OMI Confirmed By:JOLIE BRAGA MD
--- NOTE | 2017-08-13 22:58 | EKG ---
Test Reason : Blood Pressure : / mmHG Vent. Rate : 085 BPM Atrial Rate : 085 BPM P-R Int : 158 ms QRS Dur : 074 ms QT Int : 356 ms P-R-T Axes : 067 -23 072 degrees QTc Int : 423 ms Normal sinus rhythm Nonspecific ST and T wave abnormality Abnormal ECG Confirmed by OMI SHAH, JOLIE ([id number]), primer expeditor and drier DON OWEN ([id number]) on 08/13/2017 10:57:57 PM Referred By: Confirmed By:JOLIE BRAGA MD
--- NOTE | 2017-08-17 22:34 | EKG ---
Test Reason : Blood Pressure : / mmHG Vent. Rate : 092 BPM Atrial Rate : 092 BPM P-R Int : 152 ms QRS Dur : 096 ms QT Int : 414 ms P-R-T Axes : 026 -30 -19 degrees QTc Int : 511 ms Normal sinus rhythm Left axis deviation Cannot rule out Anterior infarct , age undetermined T wave abnormality, consider inferior ischemia Prolonged QT Abnormal ECG When compared with ECG of 01-AUG-2017 11:47, T wave inversion now evident in Inferior leads T wave inversion now evident in Anterior leads QT has lengthened Confirmed by Eva CAMP ([id number]) on 08/17/2017 10:34:26 PM Referred By: JULIANA Confirmed By:Eva CAMP
== END 2017-08-08 21:28 | DRG 246 ==
LOC: ERS 08:31 → CCU 10:44 → 2NO 08-02 10:19
PROVIDERS: ADMIT Internal Medicine Cardiovascular Disease; ATTEND Internal Medicine Cardiovascular Disease
PROC: 027034Z Dilation of Coronary Artery, One Artery with Drug-eluting Intraluminal Device, Percutaneous Approach (ICD-10-PCS; principal; 2017-08-01)
PROC: 4A023N7 Measurement of Cardiac Sampling and Pressure, Left Heart, Percutaneous Approach (ICD-10-PCS; 2017-08-01)
PROC: B2111ZZ Fluoroscopy of Multiple Coronary Arteries using Low Osmolar Contrast (ICD-10-PCS; 2017-08-01)
DX: I11.0 Hypertensive heart disease with heart failure; Z88.0 Allergy status to penicillin; I21.4 Non-ST elevation (NSTEMI) myocardial infarction; A08.4 Viral intestinal infection, unspecified; E87.6 Hypokalemia; I25.110 Atherosclerotic heart disease of native coronary artery with unstable angina pectoris; I50.23 Acute on chronic systolic (congestive) heart failure; Z79.899 Other long term (current) drug therapy; J96.01 Acute respiratory failure with hypoxia; Z79.02 Long term (current) use of antithrombotics/antiplatelets; E78.5 Hyperlipidemia, unspecified; I48.0 Paroxysmal atrial fibrillation; I25.5 Ischemic cardiomyopathy
CPT/HCPCS: 36415; 36416; 71045; 76942; 80053; 82274; 82553; 82565; 83630; 83735; 84484; 85014; 85018; 85025; 85049; 85347; 85610; 85730; 87045; 87046; 87324; 87449; 87899; 92928; 93005; 93010; 93306; 93458; 93798; 94760; 96374; 99152; 99153; A4216; C1725; C1769; C1874; C1887; C9600; G8978-GP-CJ; G8979-GP-CJ; G8980-GP-CJ; G8987-GO-CK; G8988-GO-CI; J0153; J1160; J1644; J1940; J2001; J2250; J2270; J3010